=== PATIENT | male | born 1980 | race Caucasian/White ===

== ENCOUNTER → 2016-05-20 10:57 | Emergency (ER) | payer OTHER, BC ==
[~2016-05-20 10:57] MED LIST: ABILIFY5 M1 PO; ADULT LOW DOSE81 M1 PO; AUGMENTIN875 MG PO; BENTYL20 M1 PO; BUSPIRONE HCL15 M2 PO; CORGARD PO; IMITREX100 MG PO; LEXAPRO10 MG PO; MIRAPEX ER3.75 MG PO; OMEPRAZOLE40 M2 PO; PERCOCET 5-3251 EACH PO; TRAZODONE HCL50 M1 PO; XANAX XR2 M1 PO; ZOFRAN4 M2 PO; ZOLOFT100 M1 PO
== END ==
LOC: EDMED 10:57
DX: M54.6 Pain in thoracic spine (principal); M54.5 Low back pain; Z90.49 Acquired absence of other specified parts of digestive tract; Z98.890 Other specified postprocedural states; V43.52XA Car driver injured in collision with other type car in traffic accident, initial encounter; Y92.410 Unspecified street and highway as the place of occurrence of the external cause